=== PATIENT | male | born 1980 | race Caucasian/White ===

== ENCOUNTER 2020-09-08 16:28 | Observation (INO) ==
--- NOTE | 2020-09-08 17:05 | ERNOTE ---
ER Male HPI Date of Service: 09/08/20 Stated Complaint: pain ER Male: other - scrotal abscess Time Seen by Provider: 09/08/20 17:03 Source: patient Exam Limitations: no limitations Immunizations: IMMUNIZATION HX Immunizations Up to Date Yes History of Influenza Vaccine No Hx Pneumococcal Vaccination No Allergies/Adverse Reactions: Allergies cephalexin monohydrate [From [employer]] Allergy (Verified 07/11/19 15:48) Home Medications: HOME MEDICATIONS Clindamycin HCl [Cleocin HCl] 300 mg PO QID 10 Days #40 cap 09/08/20 [Last Taken Unknown] HYDROcodone/ACETAMINOPHEN [Hydrocodon-Acetaminophen 5-325] 1 ea PO Q6H PRN #15 tab 09/08/20 [Last Taken Unknown] - Pain Score Pain Score #1 Pain Score: 9 - History of Present Illness Narrative: The patient is a 40 year old male who presents for left scrotal pain which has been present for 2 days. There are associated symptoms of edema and increased pain for the past 3 hours. The patient reports pain to left scrotum, 06/07. There are no alleviating factors. There are aggravating factors . Previous treatments have included: Tylenol, Ibuprofen and Clindamycin as was prescribed this am. The past medical history includes: migraines and hidranitis suppurativa. The social history is positive for current tobacco use. The patient has had no known ill contacts. Patient presented to ER this am and reported that symptoms had improved since onset due to purulent drainage from area. Patient was started on oral antibiotics and set up to see urology first of the week for further evaluation unless symptoms worsened or new symptoms developed. Patient states that pain began to worsen and returned to ER for reevaluation. Review of Systems - Review of Systems Constitutional: Present: no symptoms reported. Absent: fever, chills, fatigue EYE: Present: no symptoms reported ENT: Present: no symptoms reported. Absent: ear pain, nasal drainage, sore throat Respiratory: Present: no symptoms reported. Absent: shortness of breath, cough Cardiology: Present: no symptoms reported. Absent: chest pain Gastrointestinal/Abdominal: Present: no symptoms reported. Absent: nausea, vomiting, diarrhea Genitourinary: Present: other - scrotal pain Musculoskeletal: Present: no symptoms reported Skin: Present: lesions All Other Systems: All systems neg except as marked Medical History (Last Reviewed 09/08/20 @ 17:34 by LAITH Lares) Hidradenitis suppurativa Migraines Surgical History: Surgical History (Last Reviewed 09/08/20 @ 17:34 by LAITH Lares) H/O hand surgery H/O hernia repair L knee repair Family History: Family History (Last Reviewed 09/08/20 @ 17:34 by LAITH Lares) Other No pertinent family history Social History: (Last Reviewed 09/08/20 @ 17:34 by LAITH Lares) Tobacco: Smoking Status: Current every day smoker tobacco type: cigarettes Smoking cigarettes per day: 40 Alcohol: alcohol intake: never Substance Use: substance use type: does not use Physical Exam - Physical Exam General Appearance: Present: wd/wn, alert, moderate distress Head Exam: Present: normal inspection, no evidence of injury Eye Exam: Normal inspection: bilateral Respiratory: Present: no respiratory distress, normal breath sounds, no accessory muscle use, lungs clear Cardiovascular/Chest: Present: regular rate, rhythm, no murmur Gastrointestinal/Abdominal: Present: normal bowel sounds, nontender, nondistended, soft, no organomegaly Male Genitals Exam: Present: scrotum tenderness (L) - indurated along posterior left scrotum without drainage or overlying erythema, unchanged from exam that was completed this am. Absent: testicular tenderness (L) Neurological Exam: Present: alert, oriented, normal mood/affect, no motor/sensory deficits Skin Exam: Present: normal color, warm/dry Progress - Date and Time Seen: Date and Time: 09/08/20 18:46 Case reviewed with , feels that patient can be admitted locally for IV antibiotics and pain control and if needed consult or transfer if symptoms worsen; otherwise will follow up with patient next week as previously planned. Patient without urinary difficulty. 09/08/20 18:47 Case was reviewed with , will admit for observation for scrotal abscess and pain management. - Results and Orders Patient's Lab Results:: I have reviewed the patient's lab results. - Vital Signs Patient's Vital Signs:: I have reviewed the patient's vital signs. - CT/Ultrasound CT/Ultrasound Narrative: IMPRESSION: 1. ELONGATED LOW-DENSITY COLLECTION IN THE POSTERIOR BASE OF THE LEFT SCROTUM. THIS COLLECTION HAS BOTH FLUID AND FAT ATTENUATION, SUGGESTING A COMPONENT OF INFLAMED FAT. THIS MAY REFLECT AN ABSCESS. 2. PROBABLE HYDROCELE INVOLVING THE LEFT SCROTUM. Electronically signed by Paolo Blancas M.D.. - Progress/Reassessment Progress:: Unchanged Departure Clinical Impression: Scrotal abscess - Departure Disposition: Still a patient Condition: Stable
[2020-09-08 17:19] LABS: Hematocrit 44.8 % (42.0-52.0); Hemoglobin 15.1 gm/dL (13.5-18.0); Mean Cell Volume 86.5 fl (78-100); Mean Corpuscular Hemoglobin 29.2 pg (27-31); Mean Corpuscular Hgb Conc 33.7 g/dl (32-36); Mean Platelet Volume 9.3 fl (8-11.3); Neutrophil # 15.3 K/mm3 (1.3-6.0); Neutrophil % 83.1 % (42-75.0); Platelet Count 371 K/mm3 (150-450); Red Blood Count 5.18 M/mm3 (4.7-6.0); Red Cell Distribution Width 12.1 % (11.5-14.0); White Blood Count 18.4 K/mm3 (4.0-10.5)
[2020-09-08 17:44] LABS: Albumin * 3.6 gm/dl (3.4-5.0); Anion Gap 11.8 mmol/L (6.8-13.8); BUN/Creatinine Ratio 17.9 (9.0-21.6); Bilirubin, Total 0.4 mg/dL (0.0-1.1); CRP 1.9 mg/dL (0.0-0.9); Ca. Corrected For Albumin 8.8 mg/dL (8.4-10.2); Calcium * 8.8 mg/dL (7.9-10.9); Carbon Dioxide 23.6 mmol/L (24-32.6); Potassium 3.4 mmol/L (3.4-4.6); Total Protein 7.4 gm/dL (6.2-8.2)
[2020-09-08] MEDS ORDERED: MORPHINE SULFATE 4 MG/ML SYRG IV ONE (17:52)
[2020-09-08] MEDS ORDERED: HYDROmorphone HCL 1 MG/ML DISP.SYRIN IV ONE ×3 (18:50→20:09)
[2020-09-08] MEDS: CLINDAMYCIN IN 0.9 % SOD CHLOR 600 MG/50 ML BAG IV SCH (19:11)
[2020-09-08] MEDS ORDERED: KETOROLAC TROMETHAMINE 30 MG/ML VIAL IV ONE (19:39)
[2020-09-08] MEDS ORDERED: NORMAL SALINE 1,000 ML IV ONE (20:15)
[2020-09-08] MEDS ORDERED: ACETAMINOPHEN 325 MG TABLET PO PRN (21:35)
[2020-09-08] MEDS ORDERED: LEVOFLOXACIN IN DEXTROSE 5 % 500 MG/100 ML BAG IV SCH (22:00)
--- NOTE | 2020-09-08 22:01 | HP ---
Chief Complaint - Chief Complaint Date of Service: 09/08/20 Time of Service: 21:52 Chief Complaint: I have left scrotal pain and swelling since History of Present Illness: 40-year-old male with past medical history of left inguinal hernia was evaluated in the ER due to a left scrotal abscess that started 2 days ago. Patient report on morning he woke up with a left scrotal pain that radiated to his left hip and shortly after he developed a tender painful mass on his left scrotum. Since then the mass has grown and has become excruciatingly painful. He denies being sexually active or any past history of STIs or urological diseases. The patient was evaluated in the ER earlier today and was discharged with oral antibiotics and instructions to contact the urologist at [facility] for an evaluation, however he returned several hours later saying that he could not handle the pain and was concerned. The urologist was contacted by the ERP and an appointment was set up for possible surgical intervention on Thursday, however the urologist recommended keeping the patient here at [facility] for management with antibiotics and pain meds. Currently the patient is still in excruciating pain so he is being administered pain medications for optimal pain control. Wound culture as well as blood culture have been ordered but a wound culture will be difficult since the mass has not ruptured. CT of the scrotum revealed a possible abscess of the involved scrotum. The patient was found to have leukocytosis on labs which is most likely due to the abscess. We will treat him with antibiotics and pain meds and repeat labs in the morning. Medical History (Last Reviewed 09/08/20 @ 19:38 by Mildred Morales RN) Hidradenitis suppurativa Migraines Surgical History: Surgical History (Last Reviewed 09/08/20 @ 19:38 by Mildred Morales RN) H/O hand surgery H/O hernia repair L knee repair Family History: Family History (Last Reviewed 09/08/20 @ 19:38 by Mildred Morales RN) Other No pertinent family history Social History: (Last Reviewed 09/08/20 @ 17:34 by LAITH Lares) Tobacco: Smoking Status: Current every day smoker tobacco type: cigarettes Smoking cigarettes per day: 40 Alcohol: alcohol intake: never Substance Use: substance use type: does not use Peds Patient Hx - Developmental: No Pertinent Hx Peds Patient Hx - Medical: No Pertinent Hx Peds Patient Hx - Cardiac/Respiratory: No Pertinent Hx Peds Patient Hx - Surgical: No Surgical History Patient History - Cancer: No Hx of Cancer Review Of Systems (GEN) - Review of Systems Generalized/Overall Review: Present: No Symptoms Reported EENTM: Present: No Symptoms Reported Respiratory: Present: No Symptoms Reported Cardiac: Present: No Symptoms Reported Abdominal: Present: No Symptoms Reported Genitourinary: Present: Other - Left scrotal abscess Musculoskeletal: Present: No Symptoms Reported Neurological: Present: No Symptoms Reported Skin: Present: No Symptoms Reported Endocrine: Present: No Symptoms Reported Immunizations: IMMUNIZATION HX Immunizations Up to Date Yes History of Influenza Vaccine No Hx Pneumococcal Vaccination No Allergies/Adverse Reactions: Allergies Allergy/AdvReac Type Severity Reaction Status Date / Time cephalexin monohydrate Allergy Verified 07/11/19 15:48 [From [employer]] Home Medications: HOME MEDICATIONS Clindamycin HCl [Cleocin HCl] 300 mg PO QID 10 Days #40 cap 09/08/20 [Last Taken Unknown] HYDROcodone/ACETAMINOPHEN [Hydrocodon-Acetaminophen 5-325] 1 ea PO Q6H PRN #15 tab 09/08/20 [Last Taken Unknown] Exam - Exam Vital Signs: Vital Signs - Last Taken Temp 36.5 C 09/08/20 21:15 Pulse 87 09/08/20 21:15 Resp 20 09/08/20 21:15 BP 118/66 09/08/20 21:15 Pulse Ox 97 09/08/20 21:15 Constitutional: Present: Alert, Oriented x3, Cooperative, Well developed, Well nourished, No distress ENT Exam: Present: normal ENT inspection, hearing grossly normal, pharynx normal, TMs normal Eye Exam: bilateral eye: normal inspection, PERRL, EOMI Neck: Present: non-tender, full range of motion, supple, normal inspection, trachea midline Back Exam: Present: normal inspection, no CVA tenderness, no vertebral tenderness Breasts: Present: Exam deferred, Nontender Respiratory: Present: chest non-tender, lungs clear, normal breath sounds, no respiratory distress, no accessory muscle use Cardiovascular/Chest: Present: normal peripheral pulses, regular rate, rhythm, no chest tenderness, no edema, no gallop, no JVD, no murmur, no rub Peripheral Pulses: femoral (L): 3+, dorsalis-pedis (R): 3+ Abdomen: Present: Normal bowel sounds, soft, nontender, nondistended, no rebound tenderness, no hepatospenomegaly, no masses /Rectal: Present: Other - Large tender hard mass on left scrotum, no drainage Extremity: Present: normal range of motion, non-tender, normal inspection, no pedal edema, no calf tenderness, normal capillary refill, pelvis stable Skin Exam: Present: normal color, warm/dry, no cyanosis Lymphatic: Present: no adenopathy Neurologic: Present: yard driver II-XII nml as tested, no motor/sensory deficits, alert, normal mood/affect, oriented x 3 Appearance: Present: appropriate appearance, appropriate insight, neat, no memory impairment Eye contact: Present: cooperative, good eye contact, normal speech Thoughts: Present: normal thought pattern, no apparent hallucination Diagnostic Studies: Abnormal Lab Results 09/08/20 09/08/20 Range/Units 17:15 17:15 WBC 18.4 H (4.0-10.5) K/mm3 Immature Gran # (Auto) 0.07 H (0.000-0.0310) K/mm3 Neutrophils % 83.1 H (42-75.0) % Lymphocytes % 8.7 L (20-51) % Neutrophils # 15.3 H (1.3-6.0) K/mm3 Monocytes # 1.2 H (0.0-1.0) k/mm3 Carbon Dioxide 23.6 L (24-32.6) mmol/L Random Glucose 142 H (70-110) mg/dL C-Reactive Prot, Quant 1.9 H (0.0-0.9) mg/dL Laboratory Results WBC 18.4 K/mm3 (4.0-10.5) H 09/08/20 17:15 RBC 5.18 M/mm3 (4.7-6.0) 09/08/20 17:15 Hgb 15.1 gm/dL (13.5-18.0) 09/08/20 17:15 Hct 44.8 % (42.0-52.0) 09/08/20 17:15 MCV 86.5 fl (78-100) 09/08/20 17:15 MCH 29.2 pg (27-31) 09/08/20 17:15 MCHC 33.7 g/dl (32-36) 09/08/20 17:15 RDW 12.1 % (11.5-14.0) 09/08/20 17:15 Plt Count 371 K/mm3 (150-450) 09/08/20 17:15 MPV 9.3 fl (8-11.3) 09/08/20 17:15 Immature Gran % (Auto) 0.40 % (0.001-0.429) 09/08/20 17:15 Immature Gran # (Auto) 0.07 K/mm3 (0.000-0.0310) H 09/08/20 17:15 Neutrophils % 83.1 % (42-75.0) H 09/08/20 17:15 Lymphocytes % 8.7 % (20-51) L 09/08/20 17:15 Monocytes % 6.6 % (0.0-9) 09/08/20 17:15 Eosinophils % 0.9 % (0.0-3.0) 09/08/20 17:15 Basophils % 0.3 % (0.0-1.0) 09/08/20 17:15 Nucleated RBC % 0.0 k/mm3 (0-1) 09/08/20 17:15 Neutrophils # 15.3 K/mm3 (1.3-6.0) H 09/08/20 17:15 Lymphocytes # 1.61 k/mm3 (1.5-3.5) 09/08/20 17:15 Monocytes # 1.2 k/mm3 (0.0-1.0) H 09/08/20 17:15 Eosinophils # 0.2 k/mm3 (0.0-0.7) 09/08/20 17:15 Absolute Basophils 0.1 k/mm3 (0.0-0.1) 09/08/20 17:15 Sodium 137 mmol/L (132-142) 09/08/20 17:15 Plasma Sodium 138 mmol/L (130-142) 09/08/20 17:15 Potassium 3.4 mmol/L (3.4-4.6) 09/08/20 17:15 Chloride 105 mmol/L (97-106) 09/08/20 17:15 Carbon Dioxide 23.6 mmol/L (24-32.6) L 09/08/20 17:15 Anion Gap 11.8 mmol/L (6.8-13.8) 09/08/20 17:15 BUN 19 mg/dL (6-23) 09/08/20 17:15 Creatinine 1.06 mg/dL (0.4-1.4) 09/08/20 17:15 Est GFR (Non-Af Amer) 83 mL/min (60-130) 09/08/20 17:15 BUN/Creatinine Ratio 17.9 (9.0-21.6) 09/08/20 17:15 Random Glucose 142 mg/dL (70-110) H 09/08/20 17:15 Lactic Acid, Venous 1.7 mmol/L (0.4-2.0) 09/08/20 17:15 Calcium 8.8 mg/dL (7.9-10.9) 09/08/20 17:15 Calcium Adj for Albumin 8.8 mg/dL (8.4-10.2) 09/08/20 17:15 Total Bilirubin 0.4 mg/dL (0.0-1.1) 09/08/20 17:15 AST 13 U/L (0-48) 09/08/20 17:15 ALT 23 U/L (19-67) 09/08/20 17:15 Alkaline Phosphatase 106 U/L (50-170) 09/08/20 17:15 C-Reactive Prot, Quant 1.9 mg/dL (0.0-0.9) H 09/08/20 17:15 Total Protein 7.4 gm/dL (6.2-8.2) 09/08/20 17:15 Albumin 3.6 gm/dl (3.4-5.0) 09/08/20 17:15 SARS-CoV-2 (PCR) Not detected (NotDetected) 09/08/20 18:55 Assessment/Plan - Narrative Narrative: Patient was evaluated and medical chart was reviewed and decision to admit to [facility] for observation of a left scrotal abscess was made. Patient continues to have excruciating pain so we will administer additional pain medications as well as anti-inflammatory meds. Physical exam revealed a nondraining solid mass on his left scrotum that is very tender to touch. The patient is afebrile and denies any chills but has leukocytosis which indicate a systemic infection. We will administer antibiotics to address the infection and reevaluate him in the morning with labs. - Assessment/Plan (1) Scrotal abscess Problem: Acute (2) Scrotal pain Problem: Acute
[2020-09-08] MEDS: HYDROmorphone HCL 1 MG/ML DISP.SYRIN IV PRN (22:46)
[2020-09-08] MEDS: KETOROLAC TROMETHAMINE 30 MG/ML VIAL IV SCH (23:20)
[2020-09-09] MEDS: HYDROmorphone HCL 1 MG/ML DISP.SYRIN IV PRN ×3 (01:37→06:27)
[2020-09-09] MEDS: CLINDAMYCIN IN 0.9 % SOD CHLOR 600 MG/50 ML BAG IV SCH (03:44)
[2020-09-09] MEDS: KETOROLAC TROMETHAMINE 30 MG/ML VIAL IV SCH (03:58)
[2020-09-09 06:14] VITALS: BP 112/65
[2020-09-09] MEDS ORDERED: PANTOPRAZOLE SODIUM 20 MG TABLET.DR PO SCH (07:00)
[2020-09-09 07:37] LABS: Hemoglobin 14.3 gm/dL (13.5-18.0); Mean Cell Volume 87.4 fl (78-100); Mean Corpuscular Hemoglobin 29.1 pg (27-31); Mean Corpuscular Hgb Conc 33.3 g/dl (32-36); Mean Platelet Volume 9.3 fl (8-11.3); Neutrophil % 72.6 % (42-75.0); Platelet Count 298 K/mm3 (150-450); Red Blood Count 4.92 M/mm3 (4.7-6.0); Red Cell Distribution Width 12.2 % (11.5-14.0); White Blood Count 15.1 K/mm3 (4.0-10.5)
[2020-09-09 08:01] LABS: Albumin * 3.2 gm/dl (3.4-5.0); Anion Gap 12.1 mmol/L (6.8-13.8); BUN/Creatinine Ratio 20.9 (9.0-21.6); Bilirubin, Total 0.6 mg/dL (0.0-1.1); Ca. Corrected For Albumin 8.6 mg/dL (8.4-10.2); Calcium * 8.3 mg/dL (7.9-10.9); Carbon Dioxide 21.8 mmol/L (24-32.6); Potassium 3.9 mmol/L (3.4-4.6); Total Protein 6.8 gm/dL (6.2-8.2)
--- NOTE | 2020-09-09 12:30 | DS ---
(1) Scrotal abscess Problem: Acute (2) Scrotal pain Problem: Acute Date of Discharge:: 09/09/20 Hospital Course: 40-year-old male that was admitted for a left scrotal abscess decided to leave AMA at 845 this morning when the patient became impatient and frustrated with the hospitalization. The patient told the nursing staff that he was not able to sleep all night due to pain from the abscess and just pace the hallways, he then says that the abscess ruptured and started draining which relieved his pain. This morning he reported not seeing the use of staying any longer and insisted that he has not been receiving any antibiotics especially the Levaquin that I had ordered for him. The nurses tried to explain to the patient that he was receiving IV clindamycin in addition to p.o. Levaquin, but he said he was not sure. The patient then got mad and signed AMA and left. Procedures Performed: none Results and Findings: Lab Pending Results 09/08/20 17:15: WBC 18.4 H, RBC 5.18, Hgb 15.1, Hct 44.8, MCV 86.5, MCH 29.2, MCHC 33.7, RDW 12.1, Plt Count 371, MPV 9.3, Immature Gran % (Auto) 0.40, Immature Gran # (Auto) 0.07 H, Neutrophils % 83.1 H, Lymphocytes % 8.7 L, Monocytes % 6.6, Eosinophils % 0.9, Basophils % 0.3, Nucleated RBC % 0.0, Neutrophils # 15.3 H, Lymphocytes # 1.61, Monocytes # 1.2 H, Eosinophils # 0.2, Absolute Basophils 0.1 09/08/20 17:15: Sodium 137, Plasma Sodium 138, Potassium 3.4, Chloride 105, Carbon Dioxide 23.6 L, Anion Gap 11.8, BUN 19, Creatinine 1.06, Est GFR (Non-Af Amer) 83, BUN/Creatinine Ratio 17.9, Random Glucose 142 H, Calcium 8.8, Calcium Adj for Albumin 8.8, Total Bilirubin 0.4, AST 13, ALT 23, Alkaline Phosphatase 106, C-Reactive Prot, Quant 1.9 H, Total Protein 7.4, Albumin 3.6 09/08/20 17:15: Lactic Acid, Venous 1.7 09/08/20 18:55: SARS-CoV-2 (PCR) Not detected 09/09/20 07:28: WBC 15.1 H, RBC 4.92, Hgb 14.3, Hct 43.0, MCV 87.4, MCH 29.1, MCHC 33.3, RDW 12.2, Plt Count 298, MPV 9.3, Immature Gran % (Auto) 0.70 H, Immature Gran # (Auto) 0.10 H, Neutrophils % 72.6, Lymphocytes % 15.1 L, Monocytes % 8.7, Eosinophils % 2.5, Basophils % 0.4, Nucleated RBC % 0.0, Neutrophils # 11.0 H, Lymphocytes # 2.28, Monocytes # 1.3 H, Eosinophils # 0.4, Absolute Basophils 0.1 09/09/20 07:28: Sodium 135, Plasma Sodium 135, Potassium 3.9, Chloride 105, Carbon Dioxide 21.8 L, Anion Gap 12.1, BUN 18, Creatinine 0.86, Est GFR (Non-Af Amer) 106 D, BUN/Creatinine Ratio 20.9, Random Glucose 104, Calcium 8.3, Calcium Adj for Albumin 8.6, Total Bilirubin 0.6, AST 12, ALT 18 L, Alkaline Phosphatase 99, Total Protein 6.8, Albumin 3.2 L Discharge Location: Home Disposition: Against medical advice Condition: Stable Face to Face Encounter completed per CMS Guidelines: No Discharge Activity: Activity as tolerated Discharge Diet: General/regular food Complete Home Medications List: Complete Home Medication List: Clindamycin HCl [Cleocin HCl] 300 mg PO QID 10 Days #40 cap 09/08/20 HYDROcodone/ACETAMINOPHEN [Hydrocodon-Acetaminophen 5-325] 1 ea PO Q6H PRN #15 tab 09/08/20
== END 2020-09-09 08:45 | disposition left against medical advice (07) ==
LOC: MS 16:28 → ER 16:28
PROVIDERS: ADMIT Family Medicine; ATTEND Family Medicine
DX: N49.2 Inflammatory disorders of scrotum